=== PATIENT | female | born 1990 | race Caucasian/White ===

== ENCOUNTER 2018-04-12 23:43 | Emergency (ER) | payer OTHER ==
[~2018-04-12] VITALS: Ht 162.6 cm; Wt 59.0 kg
[~2018-04-12 23:43] MED LIST: ACYCLOVIR 800800 M1 PO; AMBIEN 5 MG TABL5 M1 PO; APAP/CODEINE ELI5 ML OR; AZITHROMYCIN 2250 MG PO; CIPROFLOXACIN500 M1 PO; HYDROCODON-ACE1 EAC7 PO; HYDROCODONE-AP1 EAC6 PO; LIDOCAINE VISC100 M1 MM; MEDROLDOSEPACK PO; NOHOMEMEDICATIONS; PENICILLIN VK500 M1 PO; PROZAC10 MG PO; ULTRACET TABLE1 EACH PO; ULTRAM 50MG TAB50 MG PO; VENTOLIN HFA INH8 GM IH; ZPAK PO
[2018-04-13] MEDS ORDERED: PENICILLIN VK500 MG PO (00:23)
[2018-04-13] MEDS ORDERED: NORCO 5-325 TA1 EACH PO (00:23)
[2018-04-13] MEDS ORDERED: IBUPROFEN 800800 MG PO (00:23)
[2018-04-13 00:33] VITALS: BP 141/100
== END 2018-04-13 00:35 | disposition home or self-care (01) ==
LOC: M.ERS 23:43
DX: K02.9 Dental caries, unspecified (principal); K05.6 Periodontal disease, unspecified; F17.200 Nicotine dependence, unspecified, uncomplicated; F32.9 Major depressive disorder, single episode, unspecified; Z88.2 Allergy status to sulfonamides; Z88.8 Allergy status to other drugs, medicaments and biological substances

== ENCOUNTER 2018-09-24 11:55 | Emergency (ER) | payer OTHER ==
[~2018-09-24] VITALS: Ht 162.6 cm; Wt 59.0 kg
[~2018-09-24 11:55] MED LIST changes: +IBUPROFEN 800800 MG PO; +NORCO 5-325 TA1 EACH PO; +PENICILLIN VK500 MG PO
[2018-09-24] MEDS ORDERED: LIDOCAINE VISC100 ML PO (13:06)
[2018-09-24] MEDS ORDERED: AMOXICILLIN 50500 MG PO (13:06)
[2018-09-24] MEDS ORDERED: NORCO 5-325 TA1 EACH PO (13:06)
[2018-09-24 13:23] VITALS: BP 141/89
== END 2018-09-24 13:24 | disposition home or self-care (01) ==
LOC: M.ERS 11:55
DX: K08.89 Other specified disorders of teeth and supporting structures (principal); F17.200 Nicotine dependence, unspecified, uncomplicated; F32.9 Major depressive disorder, single episode, unspecified; Z88.8 Allergy status to other drugs, medicaments and biological substances